=== PATIENT | male | born 1945 | race Caucasian/White ===

== ENCOUNTER 2017-12-21 12:09 | Inpatient (IN) | payer MEDICARE ==
[~2017-12-21] VITALS: Ht 165.1 cm; Wt 68.2 kg
[~2017-12-21 12:09] MED LIST: ALBU2.5V12 NEB; ALLO100T PO; AMLO10TA PO; ATI0.5T PO; ATOR20TA66 PO; BUDE10.22 INH; FAMO20TA8 PO; FLO0.4C PO; GABA-532 PO; MAGN400T6 PO; METO-384 PO; OXYC-658 PO; PRED10TA23 PO; ZOLP10TA5 PO; testosterone TOP
[2017-12-21] MEDS ORDERED: acetaminophen 325mg tablet PO STA (12:20)
[2017-12-21] MEDS ORDERED: methylPREDNISolone sod succ 125mg/2ml vial IV ONE (12:25)
[2017-12-21] MEDS ORDERED: albuterol 2.5 MG/3 ML nebule NEB ONE (12:25)
[2017-12-21] MEDS ORDERED: ipratropium/albuterol 3ml nebule NEB ONE (12:25)
[2017-12-21 12:37] LABS: BASOPHILS # (AUTO) 0.2 X10'3 (0-0.2); BASOPHILS % (AUTO) 1.1 % (0-1); EOSINOPHILS # (AUTO) 0.2 X10'3 (0-0.9); EOSINOPHILS % (AUTO) 1.3 % (0-6); HEMATOCRIT 32.7 % (42.0-52.0); HEMOGLOBIN 11.2 g/dl (14.0-17.9); LYMPHOCYTES # (AUTO) 0.7 X10'3 (1.1-4.8); LYMPHOCYTES % (AUTO) 5.1 % (21-51); MEAN CORPUSCULAR HEMOGLOBIN 36.4 PG (27.0-31.0); MEAN CORPUSCULAR HGB CONC 34.2 % (33.0-36.5); MEAN CORPUSCULAR VOLUME 106.3 FL (78-98); MEAN PLATELET VOLUME 6.2 FL (7.4-10.4); MONOCYTES # (AUTO) 0.5 X10'3 (0-0.9); MONOCYTES % (AUTO) 3.9 % (2-12); NEUTROPHILS # (AUTO) 12.4 X10'3 (1.8-7.7); NEUTROPHILS % (AUTO) 88.6 % (42-75); PLATELET COUNT 126 X10'3 (140-440); RED BLOOD COUNT 3.08 X10'6 (4.70-6.10); RED CELL DISTRIBUTION WIDTH 16.7 % (11.5-14.5)
[2017-12-21 12:52] LABS: ALANINE AMINOTRANSFERASE 33 U/L (12-78); ALKALINE PHOSPHATASE 81 IU/L (46-116); ANION GAP 8 (8-16); ASPARTATE AMINO TRANSFERASE 20 U/L (10-37); BILIRUBIN,TOTAL 0.8 MG/DL (0.1-1.0); BLOOD UREA NITROGEN 41 MG/DL (7-18); BUN/CREATININE RATIO 7.8 (5.4-32.0); CALCIUM 8.6 MG/DL (8.5-10.1); CHLORIDE 102 MMOL/L (99-107); CREATININE 5.27 MG/DL (0.60-1.10); GLUCOSE 122 MG/DL (70-104); MAGNESIUM 2.1 MG/DL (1.5-2.4); POTASSIUM 4.3 MMOL/L (3.5-5.1); SODIUM 140 MMOL/L (135-145); TOTAL CARBON DIOXIDE 30.5 MMOL/L (24-32); TOTAL PROTEIN 6.1 G/DL (6.4-8.2); eGFR 11 ML/MIN
[2017-12-21 12:58] LABS: PARTIAL THROMBOPLASTIN TIME 25 SECONDS (22-32); PROTHROMBIN TIME 10.7 SECONDS (9.0-12.0)
[2017-12-21 13:17] LABS: CLARITY,URINE CLOUDY (Clear); COLOR,URINE STRAW (Yellow); GLUCOSE, URINE NEGATIVE (Neg); KETONES,URINE NEGATIVE (Neg); LEUKOCYTE ESTERASE ,URINE MODERATE (Neg); NITRITES, URINE NEGATIVE (Neg); OCCULT BLOOD,URINE MODERATE (Neg); PH,URINE 8.5 (4.8-8.0); PROTEIN,URINE 100 mg/dl (Neg); UROBILINOGEN,URINE 0.2 E.U/dL (0.2-1.0)
[2017-12-21 13:20] LABS: UA COLLECTION TYPE STRAIGHT CATH
[2017-12-21 13:22] LABS: BACTERIA,URINE 1+ /HPF (Neg); SQUAMOUS EPITHELIAL CELL,UR NONE SEEN /LPF (FEW); WBC CLUMPS,URINE MANY /HPF (NEGATIVE)
[2017-12-21 13:23] LABS: WBC,URINE TNTC /HPF (0-4)
[2017-12-21] MEDS ORDERED: cefTAZidime inj. 1 GM in normal saline 100ml IV soln 100 ML IV STA (13:41)
[2017-12-21] MEDS ORDERED: cefTAZidime inj. 1 GM in dextrose 5%-water 50ml 50 ML IV STA (13:55)
[2017-12-21] MEDS ORDERED: WATER IV STA (13:55)
[2017-12-21] MEDS ORDERED: DEXTROSE 5% IV STA (13:55)
[2017-12-21] MEDS ORDERED: CEFTAZIDIME IV STA (13:55)
[2017-12-21] MEDS ORDERED: vancomycin/NS 1 GM ADD-VANTAGE 250 ML IV ONE (13:55)
[2017-12-21] MEDS ORDERED: vancomycin/NS 1 GM ADD-VANTAGE 250 ML IV PRN (15:05)
[2017-12-21] MEDS ORDERED: HYDROcodone/acetaminophen 5mg/325mg tablet PO PRN (15:05)
[2017-12-21] MEDS ORDERED: acetaminophen 325mg tablet PO PRN (15:05)
[2017-12-21] MEDS: allopurinol 100mg tablet PO SCH (15:15)
[2017-12-21] MEDS: magnesium oxide 400mg tablet PO SCH (15:15)
[2017-12-21] MEDS ORDERED: tamsulosin 0.4mg capsule PO SCH (15:15)
[2017-12-21] MEDS: famotidine 20mg tablet PO SCH (15:15)
[2017-12-21] MEDS: LORazepam 0.5 MG tablet PO SCH (15:15)
[2017-12-21] MEDS ORDERED: ONDA4TAB9 PO (15:25)
[2017-12-21] MEDS ORDERED: GUAI-652 PO (15:25)
[2017-12-21] MEDS ORDERED: LEVO25TA2 PO (15:25)
[2017-12-21] MEDS ORDERED: VITA-268 PO (15:25)
[2017-12-21] MEDS ORDERED: OXYC-580 PO (15:25)
[2017-12-21] MEDS ORDERED: FURO80TA87 PO (15:25)
[2017-12-21] MEDS ORDERED: ATOR40TA PO (15:25)
[2017-12-21] MEDS ORDERED: BUDE10.2 INH (15:25)
[2017-12-21] MEDS ORDERED: FLUT16SP2 BOTHNARES (15:25)
[2017-12-21] MEDS ORDERED: CYCL-1 PO (15:25)
[2017-12-21] MEDS ORDERED: TRIH5TAB2 PO (15:25)
[2017-12-21] MEDS ORDERED: cyclobenzaprine 10mg tablet PO PRN (15:30)
[2017-12-21] MEDS ORDERED: ondansetron 4mg rapidly disintigrating tab PO PRN (15:30)
[2017-12-21] MEDS ORDERED: guaiFENesin/DM oral syrup 5 ML CUP PO PRN (15:40)
[2017-12-21 16:17] LABS: ANISOCYTOSIS 1+; PLATELET ESTIMATE DECREASED; TOTAL CELLS COUNTED 100
[2017-12-21 16:19] LABS: TOXIC GRANULATION 1+; TOXIC VACUOLATION FEW
[2017-12-21] MEDS ORDERED: oxyCODONE IR 5mg (immed. release) tablet PO SCH (20:00)
[2017-12-21] MEDS ORDERED: non-formulary drug (Budesonide/Formoterol Fumarate (Symbicort 160-4.5 Mcg Inhaler) 2 PUFFS INH SCH (20:00)
[2017-12-21] MEDS: trihexyphenidyl 2mg tablet PO SCH (21:00)
[2017-12-21] MEDS: furosemide 40mg tablet PO SCH (23:49)
[2017-12-21] MEDS: atorvastatin 20mg tablet PO SCH (23:49)
[2017-12-21] MEDS: gabapentin 300mg capsule PO SCH (23:49)
[2017-12-21] MEDS: tamsulosin 0.4mg capsule PO SCH (23:49)
[2017-12-21] MEDS: docusate sod 100mg capsule PO SCH (23:49)
[2017-12-21] MEDS: heparin, porcine 5000 units/ml vial SQ SCH (23:51)
[2017-12-22 06:20] LABS: BASOPHILS % (AUTO) 0 % (0-1); EOSINOPHILS # (AUTO) 0.2 X10'3 (0-0.9); EOSINOPHILS % (AUTO) 1.8 % (0-6); HEMATOCRIT 32.3 % (42.0-52.0); LYMPHOCYTES # (AUTO) 0.5 X10'3 (1.1-4.8); LYMPHOCYTES % (AUTO) 3.8 % (21-51); MEAN CORPUSCULAR HEMOGLOBIN 36.1 PG (27.0-31.0); MEAN CORPUSCULAR VOLUME 106.3 FL (78-98); MEAN PLATELET VOLUME 6.4 FL (7.4-10.4); MONOCYTES # (AUTO) 0.3 X10'3 (0-0.9); MONOCYTES % (AUTO) 2.5 % (2-12); NEUTROPHILS # (AUTO) 12.7 X10'3 (1.8-7.7); NEUTROPHILS % (AUTO) 91.9 % (42-75); PLATELET COUNT 122 X10'3 (140-440); RED BLOOD COUNT 3.04 X10'6 (4.70-6.10); RED CELL DISTRIBUTION WIDTH 16.3 % (11.5-14.5); WHITE BLOOD COUNT 13.8 X10'3 (4.5-11.0)
[2017-12-22 06:35] LABS: ALANINE AMINOTRANSFERASE 30 U/L (12-78); ALBUMIN 2.9 G/DL (3.4-5.0); ALBUMIN/GLOBULIN RATIO 0.9 (1.1-1.5); ALKALINE PHOSPHATASE 76 IU/L (46-116); ANION GAP 11 (8-16); ASPARTATE AMINO TRANSFERASE 16 U/L (10-37); BILIRUBIN,TOTAL 0.7 MG/DL (0.1-1.0); BLOOD UREA NITROGEN 71 MG/DL (7-18); BUN/CREATININE RATIO 10.3 (5.4-32.0); CALCIUM 8.4 MG/DL (8.5-10.1); CHLORIDE 101 MMOL/L (99-107); GLUCOSE 160 MG/DL (70-104); MAGNESIUM 2.6 MG/DL (1.5-2.4); POTASSIUM 5.1 MMOL/L (3.5-5.1); SODIUM 139 MMOL/L (135-145); TOTAL CARBON DIOXIDE 26.7 MMOL/L (24-32); TOTAL PROTEIN 6.2 G/DL (6.4-8.2); VANCOMYCIN,RANDOM 14.3 UG/ML; eGFR 8 ML/MIN
[2017-12-22] MEDS: levoTHYROXINE 25mcg tablet PO SCH (07:23)
[2017-12-22] MEDS ORDERED: normal saline 1000ml 250 ML IV PRN (08:00)
[2017-12-22] MEDS ORDERED: heparin 1,000 units/ml 10ml inj IV ONE (08:00)
[2017-12-22] MEDS: heparin, porcine 5000 units/ml vial SQ SCH ×2 (08:00→22:23)
[2017-12-22] MEDS ORDERED: atorvastatin 20mg tablet PO SCH (08:00)
[2017-12-22] MEDS ORDERED: LIDOcaine 1% (10mg/ml) 2ml vial SQ ONE (08:00)
[2017-12-22] MEDS ORDERED: tobramycin 40mg/ml inj IV ONE (09:05)
[2017-12-22] MEDS ORDERED: TOBRAMYCIN IV ONE (09:15)
[2017-12-22] MEDS ORDERED: NORMAL SALINE IV ONE (09:15)
[2017-12-22] MEDS: docusate sod 100mg capsule PO SCH ×2 (10:08→22:24)
[2017-12-22] MEDS: magnesium oxide 400mg tablet PO SCH (10:08)
[2017-12-22] MEDS: metoprolol succinate 25mg (24-HOUR) SR. Tablet PO SCH (10:09)
[2017-12-22] MEDS: furosemide 40mg tablet PO SCH ×3 (10:09→22:24)
[2017-12-22] MEDS: amLODIPine 5mg tablet PO SCH (10:09)
[2017-12-22] MEDS: LORazepam 0.5 MG tablet PO SCH (10:09)
[2017-12-22] MEDS: famotidine 20mg tablet PO SCH (10:09)
[2017-12-22] MEDS: trihexyphenidyl 2mg tablet PO SCH ×3 (10:10→22:24)
[2017-12-22] MEDS: prednisone 10mg tablet PO SCH (10:10)
[2017-12-22] MEDS: vitamin B comp w/Vit. C tab 1 TAB TABLET PO SCH (10:10)
[2017-12-22] MEDS: allopurinol 100mg tablet PO SCH (10:11)
[2017-12-22] MEDS: fluticasone nasal spray 16GM bottle NS SCH (10:12)
[2017-12-22] MEDS: ceftazidime 1000mg in D5W 50ml 50 ML IV SCH (10:21)
[2017-12-22] MEDS: fluticasone/vilanterol 200mcg/25mcg inhaler IH SCH (10:49)
[2017-12-22 12:15] VITALS: BP 125/70
[2017-12-22] MEDS: oxyCODONE IR 5mg (immed. release) tablet PO PRN (14:10)
[2017-12-22 15:00] VITALS: BP 124/64
[2017-12-22 19:00] VITALS: BP 119/68
[2017-12-22 22:00] VITALS: BP 111/75
[2017-12-22] MEDS: guaiFENesin ER 600mg tablet PO SCH (22:24)
[2017-12-22] MEDS: zolpidem 5mg tablet PO PRN ×2 (22:24)
[2017-12-22] MEDS: tamsulosin 0.4mg capsule PO SCH (22:25)
[2017-12-22] MEDS: gabapentin 300mg capsule PO SCH (22:25)
[2017-12-22] MEDS: atorvastatin 20mg tablet PO SCH (22:25)
[2017-12-23 02:00] VITALS: BP 132/75
[2017-12-23 05:49] LABS: BASOPHILS % (AUTO) 0.1 % (0-1); EOSINOPHILS # (AUTO) 0.1 X10'3 (0-0.9); EOSINOPHILS % (AUTO) 1.2 % (0-6); HEMATOCRIT 32.3 % (42.0-52.0); HEMOGLOBIN 11.1 g/dl (14.0-17.9); LYMPHOCYTES # (AUTO) 1.1 X10'3 (1.1-4.8); LYMPHOCYTES % (AUTO) 10.1 % (21-51); MEAN CORPUSCULAR HEMOGLOBIN 36.5 PG (27.0-31.0); MEAN CORPUSCULAR HGB CONC 34.4 % (33.0-36.5); MEAN CORPUSCULAR VOLUME 105.9 FL (78-98); MEAN PLATELET VOLUME 6.8 FL (7.4-10.4); MONOCYTES # (AUTO) 0.4 X10'3 (0-0.9); MONOCYTES % (AUTO) 3.7 % (2-12); NEUTROPHILS # (AUTO) 9.2 X10'3 (1.8-7.7); NEUTROPHILS % (AUTO) 84.9 % (42-75); PLATELET COUNT 124 X10'3 (140-440); RED BLOOD COUNT 3.05 X10'6 (4.70-6.10); RED CELL DISTRIBUTION WIDTH 16.7 % (11.5-14.5); WHITE BLOOD COUNT 10.9 X10'3 (4.5-11.0)
[2017-12-23 06:18] LABS: ALANINE AMINOTRANSFERASE 40 U/L (12-78); ALBUMIN 2.6 G/DL (3.4-5.0); ALBUMIN/GLOBULIN RATIO 0.8 (1.1-1.5); ALKALINE PHOSPHATASE 75 IU/L (46-116); ANION GAP 9 (8-16); ASPARTATE AMINO TRANSFERASE 31 U/L (10-37); BILIRUBIN,TOTAL 0.7 MG/DL (0.1-1.0); BLOOD UREA NITROGEN 31 MG/DL (7-18); BUN/CREATININE RATIO 9.6 (5.4-32.0); CALCIUM 8.4 MG/DL (8.5-10.1); CHLORIDE 102 MMOL/L (99-107); CREATININE 3.24 MG/DL (0.60-1.10); GLUCOSE 91 MG/DL (70-104); MAGNESIUM 2.3 MG/DL (1.5-2.4); PHOSPHORUS 4.3 MG/DL (2.3-4.5); POTASSIUM 4.5 MMOL/L (3.5-5.1); SODIUM 140 MMOL/L (135-145); TOTAL CARBON DIOXIDE 29.5 MMOL/L (24-32); VANCOMYCIN,RANDOM 7.9 UG/ML; eGFR 19 ML/MIN
[2017-12-23] MEDS: VANCOMYCIN LEVEL IV SCH (06:27)
[2017-12-23 07:05] VITALS: BP 132/70
[2017-12-23] MEDS: docusate sod 100mg capsule PO SCH ×2 (07:46→20:15)
[2017-12-23] MEDS: famotidine 20mg tablet PO SCH (07:53)
[2017-12-23] MEDS: amLODIPine 5mg tablet PO SCH (07:53)
[2017-12-23] MEDS: allopurinol 100mg tablet PO SCH (07:54)
[2017-12-23] MEDS: prednisone 10mg tablet PO SCH (07:54)
[2017-12-23] MEDS: vitamin B comp w/Vit. C tab 1 TAB TABLET PO SCH (07:54)
[2017-12-23] MEDS: metoprolol succinate 25mg (24-HOUR) SR. Tablet PO SCH (07:55)
[2017-12-23] MEDS: levoTHYROXINE 25mcg tablet PO SCH (07:55)
[2017-12-23] MEDS: guaiFENesin ER 600mg tablet PO SCH ×2 (07:56→20:28)
[2017-12-23] MEDS: magnesium oxide 400mg tablet PO SCH (07:57)
[2017-12-23] MEDS: furosemide 40mg tablet PO SCH ×3 (07:57→20:17)
[2017-12-23] MEDS: LORazepam 0.5 MG tablet PO SCH (07:58)
[2017-12-23] MEDS: trihexyphenidyl 2mg tablet PO SCH ×3 (07:58→20:17)
[2017-12-23] MEDS: heparin, porcine 5000 units/ml vial SQ SCH ×2 (07:59→20:19)
[2017-12-23] MEDS: fluticasone nasal spray 16GM bottle NS SCH (08:01)
[2017-12-23] MEDS: ceftazidime 1000mg in D5W 50ml 50 ML IV SCH (08:24)
[2017-12-23] MEDS: ondansetron/PF 4mg/2ml inj IV PRN ×2 (08:33→17:17)
[2017-12-23] MEDS: fluticasone/vilanterol 200mcg/25mcg inhaler IH SCH (08:36)
[2017-12-23] MEDS ORDERED: vancomycin/NS 1 GM ADD-VANTAGE 250 ML IV ONE (09:00)
[2017-12-23 11:00] VITALS: BP 117/57
[2017-12-23] MEDS ORDERED: LORazepam 0.5 MG tablet PO PRN (12:50)
[2017-12-23 15:00] VITALS: BP 103/58
[2017-12-23] MEDS: oxyCODONE IR 5mg (immed. release) tablet PO PRN (15:43)
[2017-12-23 18:00] VITALS: BP 122/58
[2017-12-23] MEDS: atorvastatin 20mg tablet PO SCH (20:15)
[2017-12-23] MEDS: gabapentin 300mg capsule PO SCH (20:16)
[2017-12-23] MEDS: tamsulosin 0.4mg capsule PO SCH (20:16)
[2017-12-23] MEDS: albuterol 2.5 MG/3 ML nebule NEB PRN (20:32)
[2017-12-23 22:00] VITALS: BP 125/60
[2017-12-23] MEDS: zolpidem 5mg tablet PO PRN (22:26)
[2017-12-24 02:00] VITALS: BP 122/67
[2017-12-24] MEDS: VANCOMYCIN LEVEL IV SCH (03:00)
[2017-12-24 06:30] LABS: BASOPHILS % (AUTO) 0.2 % (0-1); EOSINOPHILS # (AUTO) 0.2 X10'3 (0-0.9); EOSINOPHILS % (AUTO) 2.6 % (0-6); HEMATOCRIT 29.9 % (42.0-52.0); HEMOGLOBIN 10.3 g/dl (14.0-17.9); LYMPHOCYTES % (AUTO) 13.2 % (21-51); MEAN CORPUSCULAR HEMOGLOBIN 36.3 PG (27.0-31.0); MEAN CORPUSCULAR HGB CONC 34.6 % (33.0-36.5); MEAN PLATELET VOLUME 6.4 FL (7.4-10.4); MONOCYTES # (AUTO) 0.5 X10'3 (0-0.9); MONOCYTES % (AUTO) 5.9 % (2-12); NEUTROPHILS # (AUTO) 6.1 X10'3 (1.8-7.7); NEUTROPHILS % (AUTO) 78.1 % (42-75); PLATELET COUNT 130 X10'3 (140-440); RED BLOOD COUNT 2.85 X10'6 (4.70-6.10); RED CELL DISTRIBUTION WIDTH 16.4 % (11.5-14.5); WHITE BLOOD COUNT 7.9 X10'3 (4.5-11.0)
[2017-12-24] MEDS: metoprolol succinate 25mg (24-HOUR) SR. Tablet PO SCH (06:58)
[2017-12-24] MEDS: amLODIPine 5mg tablet PO SCH (06:59)
[2017-12-24] MEDS: furosemide 40mg tablet PO SCH ×3 (06:59→21:00)
[2017-12-24 07:02] LABS: ALANINE AMINOTRANSFERASE 43 U/L (12-78); ALBUMIN 2.7 G/DL (3.4-5.0); ALBUMIN/GLOBULIN RATIO 0.9 (1.1-1.5); ALKALINE PHOSPHATASE 73 IU/L (46-116); ANION GAP 12 (8-16); ASPARTATE AMINO TRANSFERASE 22 U/L (10-37); BILIRUBIN,TOTAL 0.9 MG/DL (0.1-1.0); BLOOD UREA NITROGEN 60 MG/DL (7-18); BUN/CREATININE RATIO 10.7 (5.4-32.0); CALCIUM 7.8 MG/DL (8.5-10.1); CHLORIDE 101 MMOL/L (99-107); CREATININE 5.62 MG/DL (0.60-1.10); GLUCOSE 107 MG/DL (70-104); MAGNESIUM 2.4 MG/DL (1.5-2.4); PHOSPHORUS 5.7 MG/DL (2.3-4.5); POTASSIUM 4.6 MMOL/L (3.5-5.1); SODIUM 140 MMOL/L (135-145); TOTAL CARBON DIOXIDE 27.4 MMOL/L (24-32); TOTAL PROTEIN 5.8 G/DL (6.4-8.2); VANCOMYCIN,RANDOM 19.6 UG/ML; eGFR 10 ML/MIN
[2017-12-24 07:08] VITALS: BP 119/68
[2017-12-24] MEDS: fluticasone nasal spray 16GM bottle NS SCH (07:48)
[2017-12-24] MEDS: trihexyphenidyl 2mg tablet PO SCH ×3 (07:49→20:20)
[2017-12-24] MEDS: allopurinol 100mg tablet PO SCH (07:50)
[2017-12-24] MEDS: prednisone 10mg tablet PO SCH (07:50)
[2017-12-24] MEDS: guaiFENesin ER 600mg tablet PO SCH ×2 (07:50→20:19)
[2017-12-24] MEDS: levoTHYROXINE 25mcg tablet PO SCH (07:51)
[2017-12-24] MEDS: docusate sod 100mg capsule PO SCH ×2 (07:51→20:20)
[2017-12-24] MEDS: famotidine 20mg tablet PO SCH (07:51)
[2017-12-24] MEDS: magnesium oxide 400mg tablet PO SCH (07:51)
[2017-12-24] MEDS: vitamin B comp w/Vit. C tab 1 TAB TABLET PO SCH (07:51)
[2017-12-24] MEDS: heparin, porcine 5000 units/ml vial SQ SCH ×2 (07:52→20:20)
[2017-12-24] MEDS: ceftazidime 1000mg in D5W 50ml 50 ML IV SCH ×2 (07:53→09:38)
[2017-12-24] MEDS ORDERED: LIDOcaine 1% (10mg/ml) 2ml vial SQ ONE ×2 (08:00→20:15)
[2017-12-24] MEDS ORDERED: normal saline 1000ml 250 ML IV PRN (08:00)
[2017-12-24] MEDS ORDERED: heparin 1,000 units/ml 10ml inj IV ONE (08:00)
[2017-12-24] MEDS: fluticasone/vilanterol 200mcg/25mcg inhaler IH SCH (08:34)
[2017-12-24] MEDS ORDERED: tobramycin 40mg/ml inj IV SCH (09:20)
[2017-12-24 11:00] VITALS: BP 128/66
[2017-12-24 15:00] VITALS: BP 133/70
[2017-12-24] MEDS: MESSAGE TO NURSING IV SCH (15:27)
[2017-12-24 18:00] VITALS: BP 145/67
[2017-12-24] MEDS: gabapentin 300mg capsule PO SCH (20:19)
[2017-12-24] MEDS: atorvastatin 20mg tablet PO SCH (20:19)
[2017-12-24] MEDS: tamsulosin 0.4mg capsule PO SCH (20:20)
[2017-12-24 22:00] VITALS: BP 145/72
[2017-12-25] MEDS: zolpidem 5mg tablet PO PRN (01:32)
[2017-12-25] MEDS: DEXTROSE 5% IV PRN (01:33)
[2017-12-25] MEDS: TOBRAMYCIN IV PRN (01:33)
[2017-12-25] MEDS: WATER IV PRN (01:33)
[2017-12-25 02:00] VITALS: BP 124/55
[2017-12-25 06:00] VITALS: BP 129/81
[2017-12-25 06:22] LABS: BASOPHILS % (AUTO) 0.2 % (0-1); EOSINOPHILS # (AUTO) 0.2 X10'3 (0-0.9); EOSINOPHILS % (AUTO) 2.6 % (0-6); HEMATOCRIT 30.7 % (42.0-52.0); HEMOGLOBIN 10.6 g/dl (14.0-17.9); LYMPHOCYTES # (AUTO) 0.9 X10'3 (1.1-4.8); LYMPHOCYTES % (AUTO) 12.3 % (21-51); MEAN CORPUSCULAR HEMOGLOBIN 36.5 PG (27.0-31.0); MEAN CORPUSCULAR HGB CONC 34.4 % (33.0-36.5); MEAN CORPUSCULAR VOLUME 105.9 FL (78-98); MEAN PLATELET VOLUME 6.7 FL (7.4-10.4); MONOCYTES # (AUTO) 0.4 X10'3 (0-0.9); MONOCYTES % (AUTO) 5.7 % (2-12); NEUTROPHILS # (AUTO) 5.5 X10'3 (1.8-7.7); NEUTROPHILS % (AUTO) 79.2 % (42-75); PLATELET COUNT 139 X10'3 (140-440); RED CELL DISTRIBUTION WIDTH 16.4 % (11.5-14.5)
[2017-12-25 06:48] LABS: ANISOCYTOSIS 1+; PLATELET ESTIMATE DECREASED; POLYCHROMASIA 1+
[2017-12-25 07:00] LABS: ALANINE AMINOTRANSFERASE 44 U/L (12-78); ALBUMIN 2.7 G/DL (3.4-5.0); ALBUMIN/GLOBULIN RATIO 0.8 (1.1-1.5); ALKALINE PHOSPHATASE 74 IU/L (46-116); ANION GAP 8 (8-16); ASPARTATE AMINO TRANSFERASE 21 U/L (10-37); BILIRUBIN,TOTAL 0.8 MG/DL (0.1-1.0); BLOOD UREA NITROGEN 22 MG/DL (7-18); BUN/CREATININE RATIO 7.1 (5.4-32.0); CALCIUM 8.5 MG/DL (8.5-10.1); CHLORIDE 101 MMOL/L (99-107); GLUCOSE 93 MG/DL (70-104); MAGNESIUM 2.1 MG/DL (1.5-2.4); PHOSPHORUS 3.1 MG/DL (2.3-4.5); POTASSIUM 4.3 MMOL/L (3.5-5.1); SODIUM 140 MMOL/L (135-145); TOTAL CARBON DIOXIDE 30.7 MMOL/L (24-32); VANCOMYCIN,RANDOM 14.1 UG/ML; eGFR 20 ML/MIN
[2017-12-25] MEDS: levoTHYROXINE 25mcg tablet PO SCH (07:56)
[2017-12-25] MEDS: vitamin B comp w/Vit. C tab 1 TAB TABLET PO SCH (07:56)
[2017-12-25] MEDS: guaiFENesin ER 600mg tablet PO SCH ×2 (07:56→20:32)
[2017-12-25] MEDS: docusate sod 100mg capsule PO SCH ×2 (07:57→20:32)
[2017-12-25] MEDS: furosemide 40mg tablet PO SCH ×3 (07:57→20:32)
[2017-12-25] MEDS: famotidine 20mg tablet PO SCH (07:57)
[2017-12-25] MEDS: amLODIPine 5mg tablet PO SCH (07:57)
[2017-12-25] MEDS: metoprolol succinate 25mg (24-HOUR) SR. Tablet PO SCH (07:58)
[2017-12-25] MEDS: allopurinol 100mg tablet PO SCH (07:58)
[2017-12-25] MEDS: prednisone 10mg tablet PO SCH (07:58)
[2017-12-25] MEDS: magnesium oxide 400mg tablet PO SCH (07:58)
[2017-12-25] MEDS: fluticasone/vilanterol 200mcg/25mcg inhaler IH SCH (08:17)
[2017-12-25] MEDS: albuterol 2.5 MG/3 ML nebule NEB PRN ×2 (08:17→12:39)
[2017-12-25] MEDS: ceftazidime 1000mg in D5W 50ml 50 ML IV SCH (08:43)
[2017-12-25] MEDS: fluticasone nasal spray 16GM bottle NS SCH (08:43)
[2017-12-25] MEDS: trihexyphenidyl 2mg tablet PO SCH ×3 (08:43→20:32)
[2017-12-25] MEDS: heparin, porcine 5000 units/ml vial SQ SCH ×2 (08:51→20:33)
[2017-12-25] MEDS: MESSAGE TO NURSING IV SCH (10:00)
[2017-12-25 11:00] VITALS: BP 124/55
[2017-12-25] MEDS: ondansetron/PF 4mg/2ml inj IV PRN (11:03)
[2017-12-25] MEDS ORDERED: ALPRAZolam 0.25mg tablet PO PRN (12:05)
[2017-12-25 15:00] VITALS: BP 119/66
[2017-12-25 18:00] VITALS: BP 134/73
[2017-12-25] MEDS: atorvastatin 20mg tablet PO SCH (20:31)
[2017-12-25] MEDS: tamsulosin 0.4mg capsule PO SCH (20:31)
[2017-12-25] MEDS: lactobacillus rhamnosus 10,000 MMU CELLS/CAPSULE PO SCH (20:32)
[2017-12-25] MEDS: gabapentin 300mg capsule PO SCH (20:32)
[2017-12-25 22:00] VITALS: BP 134/70
[2017-12-26] MEDS: zolpidem 5mg tablet PO PRN (00:09)
[2017-12-26 02:00] VITALS: BP 151/75
[2017-12-26 05:50] LABS: BASOPHILS % (AUTO) 0.3 % (0-1); EOSINOPHILS # (AUTO) 0.2 X10'3 (0-0.9); EOSINOPHILS % (AUTO) 2.9 % (0-6); HEMATOCRIT 29.1 % (42.0-52.0); HEMOGLOBIN 10.1 g/dl (14.0-17.9); LYMPHOCYTES # (AUTO) 1.1 X10'3 (1.1-4.8); LYMPHOCYTES % (AUTO) 16.2 % (21-51); MEAN CORPUSCULAR HEMOGLOBIN 36.1 PG (27.0-31.0); MEAN CORPUSCULAR HGB CONC 34.7 % (33.0-36.5); MEAN CORPUSCULAR VOLUME 104.2 FL (78-98); MEAN PLATELET VOLUME 6.5 FL (7.4-10.4); MONOCYTES # (AUTO) 0.5 X10'3 (0-0.9); MONOCYTES % (AUTO) 6.6 % (2-12); NEUTROPHILS # (AUTO) 5.2 X10'3 (1.8-7.7); PLATELET COUNT 140 X10'3 (140-440); RED BLOOD COUNT 2.79 X10'6 (4.70-6.10); RED CELL DISTRIBUTION WIDTH 16.7 % (11.5-14.5)
[2017-12-26 06:00] VITALS: BP 142/74
[2017-12-26 06:34] LABS: ALANINE AMINOTRANSFERASE 50 U/L (12-78); ALBUMIN 2.7 G/DL (3.4-5.0); ALBUMIN/GLOBULIN RATIO 0.9 (1.1-1.5); ALKALINE PHOSPHATASE 68 IU/L (46-116); ANION GAP 10 (8-16); ASPARTATE AMINO TRANSFERASE 31 U/L (10-37); BILIRUBIN,TOTAL 1.1 MG/DL (0.1-1.0); BLOOD UREA NITROGEN 44 MG/DL (7-18); BUN/CREATININE RATIO 8.2 (5.4-32.0); CALCIUM 8.3 MG/DL (8.5-10.1); CHLORIDE 101 MMOL/L (99-107); CREATININE 5.39 MG/DL (0.60-1.10); GLUCOSE 96 MG/DL (70-104); MAGNESIUM 2.3 MG/DL (1.5-2.4); PHOSPHORUS 4.9 MG/DL (2.3-4.5); POTASSIUM 4.8 MMOL/L (3.5-5.1); SODIUM 139 MMOL/L (135-145); TOTAL CARBON DIOXIDE 28.5 MMOL/L (24-32); TOTAL PROTEIN 5.8 G/DL (6.4-8.2); VANCOMYCIN,RANDOM 12.8 UG/ML; eGFR 10 ML/MIN
[2017-12-26] MEDS: trihexyphenidyl 2mg tablet PO SCH ×3 (07:32→20:17)
[2017-12-26] MEDS: lactobacillus rhamnosus 10,000 MMU CELLS/CAPSULE PO SCH ×2 (07:33→20:17)
[2017-12-26] MEDS: magnesium oxide 400mg tablet PO SCH (07:33)
[2017-12-26] MEDS: docusate sod 100mg capsule PO SCH ×2 (07:33→20:16)
[2017-12-26] MEDS: fluticasone nasal spray 16GM bottle NS SCH (07:33)
[2017-12-26] MEDS: vitamin B comp w/Vit. C tab 1 TAB TABLET PO SCH (07:33)
[2017-12-26] MEDS: guaiFENesin ER 600mg tablet PO SCH ×2 (07:34→20:17)
[2017-12-26] MEDS: levoTHYROXINE 25mcg tablet PO SCH (07:34)
[2017-12-26] MEDS: famotidine 20mg tablet PO SCH (07:34)
[2017-12-26] MEDS: ceftazidime 1000mg in D5W 50ml 50 ML IV SCH (07:34)
[2017-12-26] MEDS: fluticasone/vilanterol 200mcg/25mcg inhaler IH SCH (07:34)
[2017-12-26] MEDS: metoprolol succinate 25mg (24-HOUR) SR. Tablet PO SCH (07:35)
[2017-12-26] MEDS: amLODIPine 5mg tablet PO SCH (07:35)
[2017-12-26] MEDS: allopurinol 100mg tablet PO SCH (07:35)
[2017-12-26] MEDS: furosemide 40mg tablet PO SCH ×3 (07:35→20:18)
[2017-12-26] MEDS: prednisone 10mg tablet PO SCH (07:36)
[2017-12-26] MEDS: heparin, porcine 5000 units/ml vial SQ SCH ×2 (08:00→20:23)
[2017-12-26] MEDS: MESSAGE TO NURSING IV SCH (10:00)
[2017-12-26 11:00] VITALS: BP 124/67
[2017-12-26 15:00] VITALS: BP 122/64
[2017-12-26 18:30] VITALS: BP 133/69
[2017-12-26] MEDS: atorvastatin 20mg tablet PO SCH (20:18)
[2017-12-26] MEDS: tamsulosin 0.4mg capsule PO SCH (20:18)
[2017-12-26] MEDS: gabapentin 300mg capsule PO SCH (20:18)
[2017-12-26 22:00] VITALS: BP 139/66
[2017-12-26] MEDS: oxyCODONE IR 5mg (immed. release) tablet PO PRN (22:21)
[2017-12-27 02:00] VITALS: BP 146/69
[2017-12-27 07:30] VITALS: BP 151/74
[2017-12-27] MEDS: allopurinol 100mg tablet PO SCH (07:37)
[2017-12-27] MEDS: vitamin B comp w/Vit. C tab 1 TAB TABLET PO SCH (07:37)
[2017-12-27] MEDS: trihexyphenidyl 2mg tablet PO SCH ×2 (07:37→13:05)
[2017-12-27] MEDS: metoprolol succinate 25mg (24-HOUR) SR. Tablet PO SCH (07:38)
[2017-12-27] MEDS: lactobacillus rhamnosus 10,000 MMU CELLS/CAPSULE PO SCH (07:38)
[2017-12-27] MEDS: guaiFENesin ER 600mg tablet PO SCH (07:38)
[2017-12-27] MEDS: docusate sod 100mg capsule PO SCH (07:39)
[2017-12-27] MEDS: furosemide 40mg tablet PO SCH ×2 (07:39→13:05)
[2017-12-27] MEDS: famotidine 20mg tablet PO SCH (07:39)
[2017-12-27] MEDS: magnesium oxide 400mg tablet PO SCH (07:39)
[2017-12-27] MEDS: amLODIPine 5mg tablet PO SCH (07:40)
[2017-12-27] MEDS: levoTHYROXINE 25mcg tablet PO SCH (07:40)
[2017-12-27] MEDS: prednisone 10mg tablet PO SCH (07:40)
[2017-12-27] MEDS: ceftazidime 1000mg in D5W 50ml 50 ML IV SCH (07:40)
[2017-12-27] MEDS: heparin, porcine 5000 units/ml vial SQ SCH (07:41)
[2017-12-27] MEDS: fluticasone nasal spray 16GM bottle NS SCH (07:42)
[2017-12-27] MEDS ORDERED: normal saline 1000ml 250 ML IV PRN (08:00)
[2017-12-27] MEDS ORDERED: LIDOcaine 1% (10mg/ml) 2ml vial SQ ONE (08:00)
[2017-12-27] MEDS ORDERED: epoetin 20,000 units/ml inj IV ONE (08:00)
[2017-12-27] MEDS: fluticasone/vilanterol 200mcg/25mcg inhaler IH SCH (08:00)
[2017-12-27] MEDS ORDERED: heparin 1,000 units/ml 10ml inj IV ONE (08:00)
[2017-12-27 09:49] LABS: HEMATOCRIT 28.6 % (42.0-52.0); HEMOGLOBIN 9.9 g/dl (14.0-17.9); MEAN CORPUSCULAR HEMOGLOBIN 36.2 PG (27.0-31.0); MEAN CORPUSCULAR HGB CONC 34.6 % (33.0-36.5); MEAN CORPUSCULAR VOLUME 104.6 FL (78-98); MEAN PLATELET VOLUME 6.3 FL (7.4-10.4); PLATELET COUNT 143 X10'3 (140-440); RED BLOOD COUNT 2.73 X10'6 (4.70-6.10); RED CELL DISTRIBUTION WIDTH 16.5 % (11.5-14.5); WHITE BLOOD COUNT 7.9 X10'3 (4.5-11.0)
[2017-12-27] MEDS: MESSAGE TO NURSING IV SCH (10:00)
[2017-12-27 11:00] VITALS: BP 115/73
[2017-12-27] MEDS: WATER IV PRN (13:06)
[2017-12-27] MEDS: DEXTROSE 5% IV PRN (13:06)
[2017-12-27] MEDS: TOBRAMYCIN IV PRN (13:06)
== END 2017-12-27 16:15 | disposition home or self-care (01) | DRG 871 ==
LOC: ER 12:10 → ED HOLD 15:03 → PCU 3S 12-22 11:55
PROVIDERS: ADMIT Internal Medicine Critical Care Medicine; ATTEND Internal Medicine Critical Care Medicine
PROC: 5A1D70Z Performance of Urinary Filtration, Intermittent, Less than 6 Hours Per Day (ICD-10-PCS; principal; 2017-12-22)
PROC: 5A1D70Z Performance of Urinary Filtration, Intermittent, Less than 6 Hours Per Day (ICD-10-PCS; 2017-12-24)
PROC: 5A1D70Z Performance of Urinary Filtration, Intermittent, Less than 6 Hours Per Day (ICD-10-PCS; 2017-12-27)
DX: A41.9 Sepsis, unspecified organism (principal); J15.1 Pneumonia due to Pseudomonas; G93.41 Metabolic encephalopathy; I12.0 Hypertensive chronic kidney disease with stage 5 chronic kidney disease or end stage renal disease; E11.22 Type 2 diabetes mellitus with diabetic chronic kidney disease; J84.10 Pulmonary fibrosis, unspecified; T86.12 Kidney transplant failure; N18.6 End stage renal disease; J44.0 Chronic obstructive pulmonary disease with (acute) lower respiratory infection; N39.0 Urinary tract infection, site not specified; E78.00 Pure hypercholesterolemia, unspecified; E03.9 Hypothyroidism, unspecified; F32.9 Major depressive disorder, single episode, unspecified; K21.9 Gastro-esophageal reflux disease without esophagitis; J32.9 Chronic sinusitis, unspecified; B95.2 Enterococcus as the cause of diseases classified elsewhere; R31.9 Hematuria, unspecified; R33.8 Other retention of urine; N40.1 Benign prostatic hyperplasia with lower urinary tract symptoms; R09.02 Hypoxemia; Y83.0 Surgical operation with transplant of whole organ as the cause of abnormal reaction of the patient, or of later complication, without mention of misadventure at the time of the procedure; Z99.2 Dependence on renal dialysis; Z90.49 Acquired absence of other specified parts of digestive tract; Z88.2 Allergy status to sulfonamides; Z88.6 Allergy status to analgesic agent; Z88.1 Allergy status to other antibiotic agents; Z88.8 Allergy status to other drugs, medicaments and biological substances; Z91.013 Allergy to seafood; Z79.899 Other long term (current) drug therapy; Z87.891 Personal history of nicotine dependence; Y92.89 Other specified places as the place of occurrence of the external cause
CPT/HCPCS: 36415; 71045; 80053; 80202; 81001; 83605; 83735; 84100; 84145; 85025; 85027; 85610; 85730; 87040; 87070; 87077; 87088; 87186; 87502; 87503; 93005; 94640; 94760; 96365; 96375; 97110; 97116; 97162; 97530; 99285; A4315; A4353; A6212; A6258; A6402; G0257; J0713; J0885; J1644; J2405; J2930; J3260; J3370; J3490; J7030; J7060; J7512